=== PATIENT | male | born 2000 | race Hispanic/Latino ===

== ENCOUNTER 2022-01-09 12:11 | Emergency (ER) | payer OTHER ==
[~2022-01-09] VITALS: Ht 188 cm; Wt 77.1 kg
[2022-01-09] MEDS ORDERED: ACETAMINOPHEN 500 MG TABLET PO ONE (13:00)
[2022-01-09 13:55] VITALS: BP 111/72
== END 2022-01-09 14:12 | disposition home or self-care (01) ==
LOC: EDH 12:11
DX: Z77.098 Contact with and (suspected) exposure to other hazardous, chiefly nonmedicinal, chemicals (principal)
CPT/HCPCS: 71045